=== PATIENT | male | born 1970 | race Caucasian/White ===

== ENCOUNTER 2019-10-31 04:37 | Emergency (ER) | payer OTHER ==
[~2019-10-31] VITALS: Ht 185.4 cm; Wt 100.0 kg
[2019-10-31] MEDS ORDERED: BACTRIM DS1 TAB PO (05:10)
[2019-10-31] MEDS ORDERED: KEFLEX500 MG PO (05:10)
[2019-10-31 05:30] VITALS: BP 138/91
== END 2019-10-31 05:30 | disposition home or self-care (01) | DRG 603 ==
LOC: ED 04:37
DX: L02.422 Furuncle of left axilla (principal); L02.821 Furuncle of head [any part, except face]